=== PATIENT | male | born 1975 | race Hispanic/Latino ===

== ENCOUNTER 2021-11-11 16:09 | Inpatient (IN) | payer SELFPAY ==
[2021-11-11] MEDS ORDERED: MINERAL OIL/PETROLATUM, WHITE OPHTH OINT 3.5 GM OU PRN (17:01)
[2021-11-11] MEDS ORDERED: LIP THERAPY VASELINE TP PRN (17:01)
[2021-11-11] MEDS ORDERED: KETAMINE 500 MG/5 ML VIAL MDV IV ONE (17:01)
[2021-11-11] MEDS ORDERED: ROCURONIUM 50 MG/5 ML INJ IV ONE ×2 (17:01→23:16)
[2021-11-11] MEDS ORDERED: LACTATED RINGERS 1,000 ML IV ONE (17:03)
--- NOTE | 2021-11-11 17:11 | Emergency Department Report ---
ED General Adult HPI - General Chief complaint: Altered Mental Status Stated complaint: UNRESPONSIVE Time Seen by Provider: 11/11/21 16:28 Source: patient, EMS ( EMS documentation not available at time of chart dictation ), RN notes reviewed Mode of arrival: Stretcher Limitations: Altered Mental Status, Physical Limitation - History of Present Illness Initial comments: The patient was evaluated in the emergency department for symptoms described in the history of present illness. He/she was evaluated in the context of the global COVID-19 pandemic, which necessitated consideration that the patient might be at risk for infection with the virus that causes COVID-19. Institutional protocols and algorithms that pertain to the evaluation of patients at risk for COVID-19 are in a state of rapid change based on information released by regulatory bodies including the CDC and federal and state organizations. These policies and algorithms were followed during the patient's care in the emergency department. Please note that these policies, procedures and recommendations changed on a rapid basis. The patient is a 46-year-old gentleman who is obese. He is not known to myself previously. He is brought to the hospital by emergency medical services. History is limited as the patient is altered. At the moment, he is not accompanied by friends or family for collateral information or additional information. His Accu-Chek is reported as within normal limits. His last known well time is not explicitly known. Upon initial evaluation, patient is snoring, and gasping, demonstrating signs of decompensated obstructive sleep apnea, with probable hypercapnic respiratory failure. Saturating at 70% to low 80s. With vigorous stimulation the patient arouses. He denies physical pain. He does not know where he is. He moves 4 extremities. He does not know how he got to the hospital. However, when not stimulated, he falls back to sleep, becomes unresponsive, hypoxic, and is apneic -: unknown - Related Data Allergies Allergy/AdvReac Type Severity Reaction Status Date / Time No Known Allergies Allergy Unverified 11/11/21 17:42 ED Review of Systems ROS: Stated complaint: UNRESPONSIVE Other details as noted in HPI Comment: Unobtainable due to pts medical conditions ED Physical Exam - General General appearance: lethargic, obese - Head Head exam: Present: atraumatic, normocephalic - Eye Eye exam: Present: normal appearance, PERRL, EOMI - ENT ENT exam: Present: normal exam, normal orophraynx, mucous membranes dry, normal external ear exam - Neck Neck exam: Present: normal inspection, full ROM. Absent: tenderness, meningismus - Respiratory Respiratory exam: Present: respiratory distress, wheezes, rhonchi, accessory muscle use - Cardiovascular Cardiovascular Exam: Present: normal rhythm, tachycardia, normal heart sounds. Absent: bradycardia, irregular rhythm, systolic murmur, diastolic murmur, rubs, gallop - GI/Abdominal GI/Abdominal exam: Present: soft, other (Morbidly obese). Absent: distended, tenderness, guarding, rebound, rigid, pulsatile mass - Rectal Rectal exam: Present: deferred - Extremities Exam Extremities exam: Present: normal inspection, full ROM, other (2+ pulses noted in the bilateral upper and lower extremities. There is no palpable cord. negative Homans sign. Muscular compartments are soft. The pelvis is stable.). Absent: pedal edema, calf tenderness - Back Exam Back exam: Present: normal inspection. Absent: tenderness, CVA tenderness (R), CVA tenderness (L), paraspinal tenderness, vertebral tenderness - Neurological Exam Neurological exam: Present: altered, other (When aroused, the patient is awake, responds to name, and moves 4 extremities. There is no facial droop) - Psychiatric Psychiatric exam: Present: flat affect - Skin Skin exam: Present: warm, dry, intact, normal color. Absent: rash ED Course - Reevaluation(s) Reevaluation #1: 11/11/21 17:09 Differential diagnosis, including but not limited to: Hypercapnic respiratory failure, toxic encephalopathy, metabolic encephalopathy, pneumonia, urinary tract infection, thyroid derangement Assessment and plan: 46-year-old morbidly obese gentleman, with physical exam evidence of decompensated obstructive sleep apnea, who is acutely encepha lopathic and altered. He is not a candidate for positive pressure ventilation given alteration in mental status. He requires intubation for definitive airway management. The patient is intubated without incident or complication. Please see procedure note. Laboratory studies, CT scan of the brain, x-ray the chest, urinalysis and EKG pending. Have placed a page to critical care continuous dryout operator helper. Awaiting callback. Patient will likely require admission to the intensive care unit for supportive care once initial diagnostics have resulted. 11/11/21 18:31 Discussed the patient's history, physical, imaging studies and clinical impression with critical care physician on-call, Dr. Kapoor, who will follow in consultation and authorize admission to the intensive care unit, and hospital physician, Dr. Pedrito Manning, who will admit patient to the medical service. Additional history is obtained from patient's . Patient was found unresponsive a few days ago, and was hospitalized at [facility]. There was concern that he may have had a urinary tract infection, and was treated empirically for sepsis. As per his , he does not have a formal diagnosis. Obstructive sleep apnea, and does not currently have a BiPAP or CPAP. She does report that this patient has multiple symptoms of obstructive sleep apnea, including somnolence, fatigue, snoring at night, and breathing agonally . Patient's is updated on the patient's current condition, and presumptive diagnosis of obstructive sleep apnea. She is agreeable to admission and hospitalization Reevaluation #2: 11/11/21 19:24 updated patients with labs and radiology studies - Intubation Time Out Performed: No (Emergency situation) Sedative: Ketamine (200 milligrams) Paralytic: Rocuronium Mg Given: 100 Laryngoscope: fiberoptic video scope Size: 3 Assist Device Used: LMA ET Tube Size: 7.5 Tube Secured Depth (cm): 24 Tube Secured Location: teeth Tube Placement Confirmation: visualized tube passing t, equal breath sounds bilat, no breath sounds over epi, confirmation by capnometr Patient Tolerated Procedure: well Intubation Complications: none Additional Comments: Indication for intubation is acute presumed hypercapnic respiratory failure, acute hypoxic respiratory failure, acute encephalopathy Patient placed on nasal cannula at 15 L/min. Receives [id number] ventilation. Preoxygenated to 99/100%. Induced with 200 mg of ketamine. Paralyzed with 100 mg of rocuronium. A curved S3 video laryngoscope blade is gently inserted into the patient's oropharynx. The trachea and vocal cords are easily identified, and a 7.5 endotracheal tube was inserted under direct visualization. The executive pilot balloon was inflated, there is appropriate end-tidal capnography color change, appropriate breath sounds bilaterally, and tube co ndensation. The patient tolerated this procedure well. There were no obvious complications ED Medical Decision Making - Lab Data Result diagrams: 11/11/21 17:18 11/11/21 17:18 Lab Results 11/11/21 11/11/21 11/11/21 Range/Units 16:15 17:18 17:18 Sodium 140 (137-145) mmol/L Potassium 4.0 (3.6-5.0) mmol/L Chloride 106.3 (98-107) mmol/L Carbon Dioxide 23 (22-30) mmol/L Anion Gap 15 mmol/L BUN 7 L (9-20) mg/dL Creatinine 1.2 (0.8-1.3) mg/dL Estimated GFR > 60 ml/min BUN/Creatinine Ratio 6 % Glucose 109 H (75-100) mg/dL POC Glucose 97 (70-105) mg/dL Lactic Acid 0.80 (0.7-2.0) mmol/L Calcium 8.7 (8.4-10.2) mg/dL Magnesium 1.70 (1.7-2.3) mg/dL Total Bilirubin 0.30 (0.1-1.2) mg/dL AST 15 (5-40) units/L ALT 18 (7-56) units/L Alkaline Phosphatase 91 (35-129) units/L Ammonia (25-60) umol/L Total Creatine Kinase 35 L (55-170) units/L Troponin T < 0.010 (0.00-0.029) ng/mL Total Protein 6.8 (6.3-8.2) g/dL Albumin 4.2 (3.9-5) g/dL Albumin/Globulin Ratio 1.6 % TSH (0.270-4.200) mlU/mL Salicylates (2.8-20.0) mg/dL Acetaminophen (10.0-30.0) ug/mL Plasma/Serum Alcohol (0-0.07) % Blood Type Antibody Screen 11/11/21 11/11/21 11/11/21 Range/Units 17:18 17:18 17:18 Sodium (137-145) mmol/L Potassium (3.6-5.0) mmol/L Chloride (98-107) mmol/L Carbon Dioxide (22-30) mmol/L Anion Gap mmol/L BUN (9-20) mg/dL Creatinine (0.8-1.3) mg/dL Estimated GFR ml/min BUN/Creatinine Ratio % Glucose (75-100) mg/dL POC Glucose (70-105) mg/dL Lactic Acid (0.7-2.0) mmol/L Calcium (8.4-10.2) mg/dL Magnesium (1.7-2.3) mg/dL Total Bilirubin (0.1-1.2) mg/dL AST (5-40) units/L ALT (7-56) units/L Alkaline Phosphatase (35-129) units/L Ammonia 40.0 (25-60) umol/L Total Creatine Kinase (55-170) units/L Troponin T (0.00-0.029) ng/mL Total Protein (6.3-8.2) g/dL Albumin (3.9-5) g/dL Albumin/Globulin Ratio % TSH 2.600 (0.270-4.200) mlU/mL Salicylates < 0.3 L (2.8-20.0) mg/dL Acetaminophen (10.0-30.0) ug/mL Plasma/Serum Alcohol (0-0.07) % Blood Type Antibody Screen 11/11/21 11/11/21 11/11/21 Range/Units 17:18 17:18 17:18 Sodium (137-145) mmol/L Potassium (3.6-5.0) mmol/L Chloride (98-107) mmol/L Carbon Dioxide (22-30) mmol/L Anion Gap mmol/L BUN (9-20) mg/dL Creatinine (0.8-1.3) mg/dL Estimated GFR ml/min BUN/Creatinine Ratio % Glucose (75-100) mg/dL POC Glucose (70-105) mg/dL Lactic Acid (0.7-2.0) mmol/L Calcium (8.4-10.2) mg/dL Magnesium (1.7-2.3) mg/dL Total Bilirubin (0.1-1.2) mg/dL AST (5-40) units/L ALT (7-56) units/L Alkaline Phosphatase (35-129) units/L Ammonia (25-60) umol/L Total Creatine Kinase (55-170) units/L Troponin T (0.00-0.029) ng/mL Total Protein (6.3-8.2) g/dL Albumin (3.9-5) g/dL Albumin/Globulin Ratio % TSH (0.270-4.200) mlU/mL Salicylates (2.8-20.0) mg/dL Acetaminophen 5.0 L (10.0-30.0) ug/mL Plasma/Serum Alcohol < 0.01 (0-0.07) % Blood Type A NEGATIVE Antibody Screen Negative - EKG Data -: EKG Interpreted by Me EKG shows normal: sinus rhythm Rate: tachycardia - EKG Data When compared to previous EKG there are: previous EKG unavailable 11/11/21 19:24 The EKG is interpreted at 19: 10 Sinus rhythm, tachycardia, rate 104 bpm. Normal axis, normal P wave axis, QTC 4 3 6 ms. Motion artifact. Not a STEMI. Ms. procainamide - Radiology Data Radiology results: pending, report reviewed, image reviewed CHEST 1 VIEW 11/11/2021 5:08 PM INDICATION / CLINICAL INFORMATION: ETT placement. COMPARISON: None available. FINDINGS: SUPPORT DEVICES: There is an endotracheal tube with the tip approximately 3.7 cm above the latia. HEART / MEDIASTINUM: The heart size is normal. There is mild prominence of the central pulmonary vessels. LUNGS / PLEURA: Interstitial lung markings are mildly increased in both perihilar regions/central lungs. No pleural effusion. No pneumothorax. ADDITIONAL FINDINGS: No significant additional findings. IMPRESSION: 1. Endotracheal tube in satisfactory position radiographically. 2. Possible mild perihilar edema. Signer Name: Mohinder Rao MD Signed: 11/11/2021 4:[address] BRAIN: 11/11/2021 INDICATION / CLINICAL INFORMATION: Altered Mental Status. COMPARISON: None available. FINDINGS: BRAIN/INTRACRANIAL STRUCTURES: Unenhance d CT images of the brain were obtained. There is no evidence of acute abnormality. Ventricles and sulci are normal in size and shape. There is no evidence of ischemic injury, demyelination, hemorrhage, or mass. There are no abnormal extra-axial fluid collections. EXTRACRANIAL STRUCTURES: Unremarkable. IMPRESSION: Negative unenhanced CT of the brain. All CT scans at this location are performed using dose reduction to ALARA by means of automated exposure control. Signer Name: Vasiliy Arguelles MD Signed: 11/11/2021 5:35 PM Workstation Name: [id number] Critical Care Time: Yes Critical care time in (mins) excluding proc time.: 45 Critical care attestation.: If time is entered above; I have spent that time in minutes in the direct care of this critically ill patient, excluding procedure time. ED Disposition Clinical Impression: Acute respiratory failure with hypoxia, Acute encephalopathy, Obesity Disposition: 09 ADMITTED INPATIENT Is pt being admited?: Yes Does the pt Need Aspirin: No Condition: Critical Referrals: PRIMARY CARE,MD [Primary Care Provider] - 3-5 Days
--- NOTE | 2021-11-11 17:31 | XRay Report ---
CHEST 1 VIEW 11/11/2021 5:08 PM INDICATION / CLINICAL INFORMATION: ETT placement. COMPARISON: None available. FINDINGS: SUPPORT DEVICES: There is an endotracheal tube with the tip approximately 3.7 cm above the latia. HEART / MEDIASTINUM: The heart size is normal. There is mild prominence of the central pulmonary vess els. LUNGS / PLEURA: Interstitial lung markings are mildly increased in both perihilar regions/central anette gs. No pleural effusion. No pneumothorax. ADDITIONAL FINDINGS: No significant additional findings. IMPRESSION: 1. Endotracheal tube in satisfactory position radiographically. 2. Possible mild perihilar edema. Signer Name: Mohinder Rao MD Signed: 11/11/2021 5:26 PM Workstation Name: [id number]
[2021-11-11 18:13] LABS: Alanine Aminotransferase 18 units/L (7-56); Albumin 4.2 g/dL (3.9-5); BUN/Creatinine Ratio 6; Blood Urea Nitrogen 7 mg/dL (9-20); Calcium 8.7 mg/dL (8.4-10.2); Hemolysis Index 6
[2021-11-11 18:37] LABS: INR 0.87 (0.87-1.13)
[2021-11-11 18:38] LABS: Partial Thromboplastin Time 25.6 Sec. (24.2-36.6)
--- NOTE | 2021-11-11 18:39 | Cat Scan Report ---
CT BRAIN: 11/11/2021 INDICATION / CLINICAL INFORMATION: Altered Mental Status. COMPARISON: None available. FINDINGS: BRAIN/INTRACRANIAL STRUCTURES: Unenhanced CT images of the brain were obtained. There is no evidence of acute abnormality. Ventricles and sulci are normal in size and shape. There is no evidence of ischemic injury, demyelination, hemorrhage, or mass. There are no abnormal ex tra-axial fluid collections. EXTRACRANIAL STRUCTURES: Unremarkable. IMPRESSION: Negative unenhanced CT of the brain. All CT scans at this location are performed using dose reduction to ALARA by means of automated expos ure control. Signer Name: Vasiliy Arguelles MD Signed: 11/11/2021 6:35 PM Workstation Name: [id number]
[2021-11-11 18:41] LABS: Hematocrit 49.1 % (35.5-45.6); Hemoglobin 15.9 gm/dl (11.8-15.2); Mean Corpuscular HGB Conc 32 % (32-34); Mean Corpuscular Volume 85 fl (84-94); Platelet Count 345 K/mm3 (140-440); Red Cell Distribution Width 15.8 % (13.2-15.2)
[2021-11-11 18:54] LABS: ABG Base Excess -2.8 mmol/L (-2.0-3.0); ABG HCO3 24.1 mmol/L (20.0-26.0); ABG Methemoglobin 0.6 % (0.0-1.5); ABG Oxygen Saturation 99.5 % (95.0-99.0); ABG PCO2 49.9 mm Hg; ABG PH 7.302 pH Units (7.350-7.450)
[2021-11-11 18:56] LABS: ABG PO2 333.7 mm Hg (80.0-90.0)
[2021-11-11] MEDS ORDERED: ONDANSETRON 4 MG/2 ML INJ IV PRN (21:09)
--- NOTE | 2021-11-11 21:09 | History and Physical Report ---
History of Present Illness Date of examination: 11/11/21 Date of admission: November 11, 2021 Chief complaint: Increasing shortness of breath for 2 days History of present illness: 46-year-old male (morbidly obese brought into the emergency room for an increasing shortness of breath. Patient is not accompanied by any family. No collateral information available. His last well-known time is not known. Patient brought in by EMS. Upon initial evaluation patient was snoring and gasping for air. Patient history of obstructive sleep apnea. Patient was saturating in the low 70s to low 80s. Patient is arousable with vigorous stimulation. Denies any physical pain. Moves all 4 extremities. Patient falls back to sleep when not stimulated. Because of the low saturations and difficulty breathing patient was intubated in the emergency room for possible acute respiratory failure and hypercapnia. No fever or chills. Vaccination status not known. Medications were not available for reconciliation. ED course--patient intubated and maintained on ventilator. Past History Past Medical History: COPD, other (Obesity and obstructive sleep apnea) Past Surgical History: Other (Surgical history not known.) Social history: lives with family, full code Family history: hypertension Medications and Allergies Allergies Allergy/AdvReac Type Severity Reaction Status Date / Time ciprofloxacin Allergy Unknown Verified 11/11/21 19:44 Active Meds: Active Medications Famotidine (Famotidine 20 Mg/2 Ml Inj) 20 mg IV BID SILVIO Hydrophilic Ointment (Lip Therapy Vaseline) 1 applic TP Q2HR PRN PRN Reason: Dry Lips Propofol (Diprivan 10 Mg/Ml) 1,000 mg in 100 mls @ 2.858 mls/hr IV TITR SILVIO; Protocol Last Titration: 11/11/21 20:05 Dose: 40 mcg/kg/min, 22.861 mls/hr Multi-Ingred Cream/Lotion/Oil/Oint (Mineral Oil/Petrolatum, White Ophth Oint 3.5 Gm) 1 applic OU Q4HR PRN PRN Reason: Dry Eye(s) Senna/Docusate Sodium (Sennosides/Docusate Sodium 8.6/50 Mg Tab) 1 tab FEEDTUBE BID SILVIO Review of Systems All systems: negative Constitutional: no weight loss, no weight gain, no fever, no chills Ears, nose, mouth and throat: deferred Cardiovascular: shortness of breath Respiratory: shortness of breath, dyspnea on exertion, congestion, wheezing Gastrointestinal: no abdominal pain, no nausea, no vomiting Genitourinary Male: no dysuria, no hematuria Musculoskeletal: no neck stiffness, no neck pain Neurological: no seizures, no syncope Allergic/Immunologic: no urticaria, no allergic rhinitis Exam - Physical Exam Narrative exam: Patient intubated in the emergency room and on ventilator. - Constitutional Vitals: Temp Pulse Resp BP Pulse Ox 98.4 F 80 22 117/73 100 11/11/21 18:30 11/11/21 20:00 11/11/21 20:00 11/11/21 20:00 11/11/21 20:00 General appearance: Present: severe distress, well-nourished - EENT Eyes: Present: PERRL ENT: hearing intact, clear oral mucosa - Neck Neck: Present: supple, normal ROM - Respiratory Respiratory effort: normal Respiratory: bilateral: CTA - Cardiovascular Heart Sounds: Present: S1 & S2. Absent: rub, click - Extremities Extremities: no ischemia, pulses intact, pulses symmetrical, No edema Peripheral Pulses: within normal limits - Abdominal General gastrointestinal: Present: soft, non-tender, non-distended, normal bowel sounds Male genitourinary: Present: normal - Integumentary Integumentary: Present: clear, warm, dry - Musculoskeletal Musculoskeletal: generalized weakness - Psychiatric Psychiatric: other (Patient intubated.) - Neurologic Neurologic: moves all extremities, other - Allied Health Allied health notes reviewed: nursing, case management HEART Score - HEART Score History: Moderately suspicious Risk factors: 1-2 risk factors Troponin: Troponin T < 0.010 ng/mL (0.00-0.029) 11/11/21 17:18 Troponin: < normal limit - Critical Actions Critical Actions: 0-3 pts:0.9-1.7%risk of adverse cardiac event.Candidate for discharge Results - Labs CBC & Chem 7: 11/12/21 03:52 11/12/21 03:52 Labs: Laboratory Last Values WBC 13.6 K/mm3 (4.5-11.0) H 11/11/21 17:18 RBC 5.80 M/mm3 (3.65-5.03) H 11/11/21 17:18 Hgb 15.9 gm/dl (11.8-15.2) H 11/11/21 17:18 Hct 49.1 % (35.5-45.6) H 11/11/21 17:18 MCV 85 fl (84-94) 11/11/21 17:18 MCH 27 pg (28-32) L 11/11/21 17:18 MCHC 32 % (32-34) 11/11/21 17:18 RDW 15.8 % (13.2-15.2) H 11/11/21 17:18 Plt Count 345 K/mm3 (140-440) 11/11/21 17:18 Lymph % (Auto) [employer] 11/11/21 17:18 Major % (Auto) [employer] 11/11/21 17:18 Eos % (Auto) [employer] 11/11/21 17:18 Baso % (Auto) [employer] 11/11/21 17:18 Lymph # (Auto) [employer] 11/11/21 17:18 Major # (Auto) [employer] 11/11/21 17:18 Eos # (Auto) [employer] 11/11/21 17:18 Baso # (Auto) [employer] 11/11/21 17:18 Seg Neutrophils % [employer] 11/11/21 17:18 Seg Neutrophils # [employer] 11/11/21 17:18 PT 12.8 Sec. (12.2-14.9) 11/11/21 17:18 INR 0.87 (0.87-1.13) 11/11/21 17:18 APTT 25.6 Sec. (24.2-36.6) 11/11/21 17:18 ABG pH 7.302 pH Units (7.350-7.450) L 11/11/21 18:42 ABG pCO2 49.9 mm Hg 11/11/21 18:42 ABG pO2 333.7 mm Hg (80.0-90.0) H 11/11/21 18:42 ABG HCO3 24.1 mmol/L (20.0-26.0) 11/11/21 18:42 ABG O2 Saturation 99.5 % (95.0-99.0) H 11/11/21 18:42 ABG O2 Content 22.1 (0.0-44) 11/11/21 18:42 ABG Base Excess -2.8 mmol/L (-2.0-3.0) L 11/11/21 18:42 ABG Hemoglobin 15.7 gm/dl (14.0-18.0) 11/11/21 18:42 ABG Carboxyhemoglobin 2.5 % (0.0-5.0) 11/11/21 18:42 ABG Methemoglobin 0.6 % (0.0-1.5) 11/11/21 18:42 Oxyhemoglobin 96.4 % (95.0-99.0) 11/11/21 18:42 FiO2 100 % 11/11/21 18:42 Sodium 140 mmol/L (137-145) 11/11/21 17:18 Potassium 4.0 mmol/L (3.6-5.0) 11/11/21 17:18 Chloride 106.3 mmol/L (98-107) 11/11/21 17:18 Carbon Dioxide 23 mmol/L (22-30) 11/11/21 17:18 Anion Gap 15 mmol/L 11/11/21 17:18 BUN 7 mg/dL (9-20) L 11/11/21 17:18 Creatinine 1.2 mg/dL (0.8-1.3) 11/11/21 17:18 Estimated GFR > 60 ml/min 11/11/21 17:18 BUN/Creatinine Ratio 6 % 11/11/21 17:18 Glucose 109 mg/dL (75-100) H 11/11/21 17:18 POC Glucose 97 mg/dL (70-105) 11/11/21 16:15 Lactic Acid 0.80 mmol/L (0.7-2.0) 11/11/21 17:18 Calcium 8.7 mg/dL (8.4-10.2) 11/11/21 17:18 Magnesium 1.70 mg/dL (1.7-2.3) 11/11/21 17:18 Total Bilirubin 0.30 mg/dL (0.1-1.2) 11/11/21 17:18 AST 15 units/L (5-40) 11/11/21 17:18 ALT 18 units/L (7-56) 11/11/21 17:18 Alkaline Phosphatase 91 units/L (35-129) 11/11/21 17:18 Ammonia 40.0 umol/L (25-60) 11/11/21 17:18 Total Creatine Kinase 35 units/L (55-170) L 11/11/21 17:18 Troponin T < 0.010 ng/mL (0.00-0.029) 11/11/21 17:18 Total Protein 6.8 g/dL (6.3-8.2) 11/11/21 17:18 Albumin 4.2 g/dL (3.9-5) 11/11/21 17:18 Albumin/Globulin Ratio 1.6 % 11/11/21 17:18 TSH 2.600 mlU/mL (0.270-4.200) 11/11/21 17:18 Salicylates < 0.3 mg/dL (2.8-20.0) L 11/11/21 17:18 Acetaminophen 5.0 ug/mL (10.0-30.0) L 11/11/21 17:18 Plasma/Serum Alcohol < 0.01 % (0-0.07) 11/11/21 17:18 Blood Type A NEGATIVE 11/11/21 17:18 Antibody Screen Negative 11/11/21 17:18 Short CBC 11/11/21 11/12/21 Range/Units 17:18 03:52 WBC 13.6 H 16.6 H (4.5-11.0) K/mm3 Hgb 15.9 H 14.7 (11.8-15.2) gm/dl Hct 49.1 H 46.0 H (35.5-45.6) % Plt Count 345 273 (140-440) K/mm3 BMP 11/11/21 11/12/21 17:18 03:52 Sodium 140 139 Potassium 4.0 4.4 Chloride 106.3 105.6 Carbon Dioxide 23 20 L BUN 7 L 12 Creatinine 1.2 1.2 Glucose 109 H 143 H Calcium 8.7 8.3 L Cardiac Enzymes 11/11/21 Range/Units 17:18 Total Creatine Kinase 35 L (55-170) units/L Troponin T < 0.010 (0.00-0.029) ng/mL Liver Function 11/11/21 11/12/21 Range/Units 17:18 03:52 Total Bilirubin 0.30 0.20 (0.1-1.2) mg/dL AST 15 14 (5-40) units/L ALT 18 17 (7-56) units/L Alkaline Phosphatase 91 82 (35-129) units/L Albumin 4.2 3.6 L (3.9-5) g/dL Microbiology: Microbiology 11/11/21 17:18 Peripheral/Venous Blood Culture - Preliminary Culture in Progress 11/11/21 17:18 Peripheral/Venous Blood Culture - Preliminary Culture in Progress - Imaging and Cardiology EKG: report reviewed (Sinus tachycardia) Imaging and Cardiology: Chest x-ray Mild perihilar edema Chest x-ray #2 endotracheal tube in satisfactory position Head CT Negative unenhanced CT of the brain Assessment and Plan Assessment and plan: Critical care statement The high probability OF a clinically significant sudden or life-threatening deterioration of the cardiorespiratory system and endocrine system required my full and direct attention, intervention and postoperative management. The [facility] critical care time was 40 minutes. The time is in addition to time spent performing reported procedures but includes the followin: Data review and interpretation 2: Patient assessment and monitoring of vital signs 3: Documentation 4:: Medication orders and management Advance Directives: Yes (Full code) - Patient Problems (1) Acute respiratory failure with hypoxia and hypercapnia Current Visit: Yes Status: Acute Plan to address problem: Patient was lethargic because of hypercarbia Immediate ABG was not available ABG done was after 90 minutes of ventilation Since CO2 is around 49 Decreased responsiveness because of hypercapnia IV antibiotics, IV Solu-Medrol and duo nebs [id number] and as needed Park Manager consult requested (2) Obstructive sleep apnea Current Visit: Yes Status: Chronic Plan to address problem: Patient intubated Needs CPAP machine as outpatient after extubation and stabilization Needs sleep study as outpatient (3) COPD with acute exacerbation Current Visit: Yes Status: Acute Plan to address problem: IV antibiotics, duo nebs [id number] and as needed and IV Solu-Medrol (4) Obesity hypoventilation syndrome Current Visit: Yes Status: Chronic Plan to address problem: May need bariatric surgery appointment as outpatient if patient is not motivated Defer to primary team for counseling at the time of discharge (5) Polycythemia due to fall in plasma volume Current Visit: Yes Status: Acute Plan to address problem: IV fluids for now (6) DVT prophylaxis Current Visit: Yes Status: Acute Plan to address problem: On anticoagulation GI prophylaxis
[2021-11-11] MEDS ORDERED: MORPHINE 2 MG/1 ML INJ IV PRN (21:10)
[2021-11-11] MEDS ORDERED: ACETAMINOPHEN 650 MG RECT SUPP PR PRN (21:10)
[2021-11-11] MEDS ORDERED: IPRATROPIUM/ALBUTEROL SULFATE 3 ML AMPUL.NEB IH PRN (21:12)
[2021-11-11] MEDS ORDERED: AZITHROMYCIN/NS 500 MG/250 ML 500 MG/250 ML BAG IV SCH (22:00)
[2021-11-11] MEDS ORDERED: SENNOSIDES/DOCUSATE SODIUM 8.6/50 MG TAB FEEDTUBE SCH (22:00)
[2021-11-11] MEDS ORDERED: ALBUTEROL 2.5 MG/3 ML NEBU IH PRN (22:00)
[2021-11-11] MEDS: FAMOTIDINE 20 MG/2 ML INJ IV SCH (22:00)
[2021-11-11] MEDS ORDERED: methylPREDNISolone Sod Succinate 125 MG/2 ML INJ IV SCH (22:00)
[2021-11-11] MEDS: cefTRIAXone/NS 2 GM/100 ML 2 GM/100 ML BAG IV SCH (22:08)
[2021-11-11] MEDS: HEPARIN 5,000 UNIT/1 ML VIAL SUB-Q SCH (22:09)
[2021-11-11] MEDS ORDERED: SODIUM CHLORIDE 0.9% 1000 ML 1,000 ML IV SCH (22:15)
[2021-11-11] MEDS ORDERED: KETAMINE 500 MG/5 ML VIAL MDV ONE (23:16)
[2021-11-12] MEDS ORDERED: SODIUM CHLORIDE 0.9% 500 ML 500 ML ONE (00:04)
[2021-11-12 04:24] LABS: Hemoglobin 14.7 gm/dl (11.8-15.2); Mean Corpuscular HGB Conc 32 % (32-34); Mean Corpuscular Volume 85 fl (84-94); Platelet Count 273 K/mm3 (140-440); Red Blood Count 5.43 M/mm3 (3.65-5.03); Red Cell Distribution Width 15.9 % (13.2-15.2)
[2021-11-12 04:43] LABS: Alanine Aminotransferase 17 units/L (7-56); Albumin 3.6 g/dL (3.9-5); BUN/Creatinine Ratio 10; Blood Urea Nitrogen 12 mg/dL (9-20); Calcium 8.3 mg/dL (8.4-10.2); Hemolysis Index 24
[2021-11-12 05:09] LABS: ABG Base Excess -3.5 mmol/L (-2.0-3.0); ABG Methemoglobin 0.5 % (0.0-1.5); ABG Oxygen Saturation 97.9 % (95.0-99.0); ABG PCO2 36.5 mm Hg; ABG PH 7.379 pH Units (7.350-7.450); ABG PO2 108.3 mm Hg (80.0-90.0)
[2021-11-12 06:25] LABS: Basophils % (Manual) 0 % (0.0-1.8); Eosinophils % (Manual) 0 % (0.0-4.3); Total Cells Counted 100
[2021-11-12 06:26] LABS: Anisocytosis 1+; Platelet Estimate Consistent w Auto
--- NOTE | 2021-11-12 07:46 | Progress Note ---
Assessment and Plan Assessment and plan: History of present illness: 46-year-old male (morbidly obese brought into the emergency room for an increasing shortness of breath. Patient is not accompanied by any family. No collateral information available. His last well-known time is not known. Patient brought in by EMS. Upon initial evaluation patient was snoring and gasping for air. Patient history of obstructive sleep apnea. Patient was saturating in the low 70s to low 80s. Patient is arousable with vigorous stimulation. Denies any physical pain. Moves all 4 extremities. Patient falls back to sleep when not stimulated. Because of the low saturations and difficulty breathing patient was intubated in the emergency room for possible acute respiratory failure and hypercapnia. No fever or chills. Vaccination status not known. Medications were not available for reconciliation. ED course--patient intubated and maintained on ventilator. Hospital Course: 11/12: Wean sedation. Plan for extubation today. High suspicion for XUAN given large body habitus/neck circumference. Ordered BIPAP qhs & prn. Assessment and Plan: # Acute respiratory failure with hypoxia and hypercapnia - Patient was lethargic because of hypercarbia - AB.4/30/111/20 - Decreased responsiveness because of hypercapnia - IV Solu-Medrol and duo nebs [id number] and as needed - CXR: Some worsening of RLL infiltrate - continue empric abx coverage, procalcitonin ordered - Event Security Officer consult requested # RLL pneumonia - leukocytosis 16.6K - CXR shows worsening airspace disease in RLL - Azithromycin/ceftriaxone - albuterol prn # Obstructive sleep apnea Patient intubated, plan for extubation BIPAP qhs and prn ordered Needs CPAP machine as outpatient after extubation and stabilization Needs sleep study as outpatient # COPD with acute exacerbation IV antibiotics, duo nebs [id number] and as needed and IV Solu-Medrol # Obesity hypoventilation syndrome May need bariatric surgery appointment as outpatient if patient is not motivated Defer to primary team for counseling at the time of discharge # Polycythemia due to fall in plasma volume IV fluids for now # DVT prophylaxis On anticoagulation GI prophylaxis # Advance care planning Disease education conducted, care plan discussed, diagnoses discussed, prognosis discussed, patient is full code, patient acknowledges understanding and agree with care plan, +30 minutes. The high probability of a clinically significant, sudden or life threatening deterioration of the [pulmonary] system(s) required my full and direct attention, intervention and personal management. The aggregate critical care time was [60] minutes. This time is in addition to time spent performing reported procedures but includes the following: [x] Data Review and interpretation [x] Patient assessment and monitoring of vital signs [x] Documentation [x] Medication orders and management History Interval history: Intubated, sedation being weaned. Patient following simple commands off of sedation.Asking for ETT to be removed. Hospitalist Physical - Physical exam Narrative exam: Physical Exam: VITAL SIGNS: Reviewed. GENERAL: The patient appears normally developed, Vital signs as documented. i ntubated and sedated. Elevated bmi HEAD: No signs of head trauma. EYES: Pupils are equal. Extraocular motions intact. EARS: Hearing grossly intact. MOUTH: Oropharynx is normal. NECK: No adenopathy, no JVD. CHEST: Chest with clear breath sounds bilaterally. No wheezes, rales, or rhonchi. CARDIAC: Regular rate and rhythm. S1 and S2, without murmurs, gallops, or rubs. VASCULAR: No Edema. Peripheral pulses normal and equal in all extremities. ABDOMEN: Soft, non tender and non distended. No rebound or guarding, and no masses palpated. Bowel Sounds normal. MUSCULOSKELETAL: Good range of motion of all major joints. Extremities without clubbing, cyanosis or edema. NEUROLOGIC EXAM: Alert and oriented at least x 2. following commands. no focal sensory or strength deficits. PSYCHIATRIC: Mood normal. SKIN: detail exam as documented in skin assessment - Constitutional Vitals: Temp Pulse Resp BP Pulse Ox 98.4 F 56 L 20 117/68 98 11/11/21 18:30 11/12/21 06:00 11/12/21 06:00 11/12/21 06:00 11/12/21 06:00 General appearance: Present: severe distress, well-nourished HEART Score - HEART Score Risk factors: 1-2 risk factors Troponin: Troponin T < 0.010 ng/mL (0.00-0.029) 11/11/21 17:18 Troponin: < normal limit - Critical Actions Critical Actions: 0-3 pts:0.9-1.7%risk of adverse cardiac event.Candidate for discharge Results - Labs CBC & Chem 7: 11/12/21 03:52 11/12/21 03:52 Labs: Laboratory Last Values WBC 16.6 K/mm3 (4.5-11.0) H 11/12/21 03:52 RBC 5.43 M/mm3 (3.65-5.03) H 11/12/21 03:52 Hgb 14.7 gm/dl (11.8-15.2) 11/12/21 03:52 Hct 46.0 % (35.5-45.6) H 11/12/21 03:52 MCV 85 fl (84-94) 11/12/21 03:52 MCH 27 pg (28-32) L 11/12/21 03:52 MCHC 32 % (32-34) 11/12/21 03:52 RDW 15.9 % (13.2-15.2) H 11/12/21 03:52 Plt Count 273 K/mm3 (140-440) 11/12/21 03:52 Lymph % (Auto) Coupling Machine Operator 11/11/21 17:18 [place] % (Auto) Coupling Machine Operator 11/11/21 17:18 Eos % (Auto) Coupling Machine Operator 11/11/21 17:18 Baso % (Auto) Coupling Machine Operator 11/11/21 17:18 Lymph # (Auto) Coupling Machine Operator 11/11/21 17:18 [place] # (Auto) Coupling Machine Operator 11/11/21 17:18 Eos # (Auto) Coupling Machine Operator 11/11/21 17:18 Baso # (Auto) Coupling Machine Operator 11/11/21 17:18 Add Manual Diff Complete 11/12/21 03:52 Total Counted 100 11/12/21 03:52 Seg Neutrophils % Coupling Machine Operator 11/12/21 03:52 Seg Neuts % (Manual) 94.0 % (40.0-70.0) H 11/12/21 03:52 Band Neutrophils % 0 % 11/12/21 03:52 Lymphocytes % (Manual) 4.0 % (13.4-35.0) L 11/12/21 03:52 Reactive Lymphs % (Man) 0 % 11/12/21 03:52 Monocytes % (Manual) 2.0 % (0.0-7.3) 11/12/21 03:52 Eosinophils % (Manual) 0 % (0.0-4.3) 11/12/21 03:52 Basophils % (Manual) 0 % (0.0-1.8) 11/12/21 03:52 Metamyelocytes % 0 % 11/12/21 03:52 Myelocytes % 0 % 11/12/21 03:52 Promyelocytes % 0 % 11/12/21 03:52 Blast Cells % 0 % 11/12/21 03:52 Nucleated RBC % Not Reportable 11/12/21 03:52 Seg Neutrophils # Coupling Machine Operator 11/11/21 17:18 Seg Neutrophils # Man 15.6 K/mm3 (1.8-7.7) H 11/12/21 03:52 Band Neutrophils # 0.0 K/mm3 11/12/21 03:52 Lymphocytes # (Manual) 0.7 K/mm3 (1.2-5.4) L 11/12/21 03:52 Abs React Lymphs (Man) 0.0 K/mm3 11/12/21 03:52 Monocytes # (Manual) 0.3 K/mm3 (0.0-0.8) 11/12/21 03:52 Eosinophils # (Manual) 0.0 K/mm3 (0.0-0.4) 11/12/21 03:52 Basophils # (Manual) 0.0 K/mm3 (0.0-0.1) 11/12/21 03:52 Metamyelocytes # 0.0 K/mm3 11/12/21 03:52 Myelocytes # 0.0 K/mm3 11/12/21 03:52 Promyelocytes # 0.0 K/mm3 11/12/21 03:52 Blast Cells # 0.0 K/mm3 11/12/21 03:52 WBC Morphology Not Reportable 11/12/21 03:52 Hypersegmented Neuts Not Reportable 11/12/21 03:52 Hyposegmented Neuts Not Reportable 11/12/21 03:52 Hypogranular Neuts Not Reportable 11/12/21 03:52 Smudge Cells Not Reportable 11/12/21 03:52 Toxic Granulation Not Reportable 11/12/21 03:52 Toxic Vacuolation Not Reportable 11/12/21 03:52 Dohle Bodies Not Reportable 11/12/21 03:52 Pelger-Huet Anomaly Not Reportable 11/12/21 03:52 Lindy Rods Not Reportable 11/12/21 03:52 Platelet Estimate Consistent w auto 11/12/21 03:52 Clumped Platelets Not Reportable 11/12/21 03:52 Plt Clumps, EDTA Not Reportable 11/12/21 03:52 Large Platelets Not Reportable 11/12/21 03:52 Giant Platelets Not Reportable 11/12/21 03:52 Platelet Satelliting Not Reportable 11/12/21 03:52 Plt Morphology Comment Not Reportable 11/12/21 03:52 RBC Morphology Not Reportable 11/12/21 03:52 Dimorphic RBCs Not Reportable 11/12/21 03:52 Polychromasia Not Reportable 11/12/21 03:52 Hypochromasia Not Reportable 11/12/21 03:52 Poikilocytosis Not Reportable 11/12/21 03:52 Anisocytosis 1+ 11/12/21 03:52 Microcytosis Not Reportable 11/12/21 03:52 Macrocytosis Not Reportable 11/12/21 03:52 Spherocytes Not Reportable 11/12/21 03:52 Pappenheimer Bodies Not Reportable 11/12/21 03:52 Sickle Cells Not Reportable 11/12/21 03:52 Target Cells Not Reportable 11/12/21 03:52 Tear Drop Cells Not Reportable 11/12/21 03:52 Ovalocytes Not Reportable 11/12/21 03:52 Helmet Cells Not Reportable 11/12/21 03:52 Bhandari-Seeley Bodies Not Reportable 11/12/21 03:52 [place] Rings Not Reportable 11/12/21 03:52 [place] Cells Not Reportable 11/12/21 03:52 Bite Cells Not Reportable 11/12/21 03:52 Crenated Cell Not Reportable 11/12/21 03:52 Elliptocytes Not Reportable 11/12/21 03:52 Acanthocytes (Spur) Not Reportable 11/12/21 03:52 Rouleaux Not Reportable 11/12/21 03:52 Hemoglobin C Crystals Not Reportable 11/12/21 03:52 Schistocytes Not Reportable 11/12/21 03:52 Malaria parasites Not Reportable 11/12/21 03:52 Stoney Bodies Not Reportable 11/12/21 03:52 Hem Pathologist Commnt No 11/12/21 03:52 PT 12.8 Sec. (12.2-14.9) 11/11/21 17:18 INR 0.87 (0.87-1.13) 11/11/21 17:18 APTT 25.6 Sec. (24.2-36.6) 11/11/21 17:18 ABG pH 7.379 pH Units (7.350-7.450) 11/12/21 04:41 ABG pCO2 36.5 mm Hg 11/12/21 04:41 ABG pO2 108.3 mm Hg (80.0-90.0) H 11/12/21 04:41 ABG HCO3 21.0 mmol/L (20.0-26.0) 11/12/21 04:41 ABG O2 Saturation 97.9 % (95.0-99.0) 11/12/21 04:41 ABG O2 Content 20.2 (0.0-44) 11/12/21 04:41 ABG Base Excess -3.5 mmol/L (-2.0-3.0) L 11/12/21 04:41 ABG Hemoglobin 14.8 gm/dl (14.0-18.0) 11/12/21 04:41 ABG Carboxyhemoglobin 1.1 % (0.0-5.0) 11/12/21 04:41 ABG Methemoglobin 0.5 % (0.0-1.5) 11/12/21 04:41 Oxyhemoglobin 96.3 % (95.0-99.0) 11/12/21 04:41 FiO2 40 % 11/12/21 04:41 Sodium 139 mmol/L (137-145) 11/12/21 03:52 Potassium 4.4 mmol/L (3.6-5.0) 11/12/21 03:52 Chloride 105.6 mmol/L (98-107) 11/12/21 03:52 Carbon Dioxide 20 mmol/L (22-30) L 11/12/21 03:52 Anion Gap 18 mmol/L 11/12/21 03:52 BUN 12 mg/dL (9-20) 11/12/21 03:52 Creatinine 1.2 mg/dL (0.8-1.3) 11/12/21 03:52 Estimated GFR > 60 ml/min 11/12/21 03:52 BUN/Creatinine Ratio 10 % 11/12/21 03:52 Glucose 143 mg/dL (75-100) H 11/12/21 03:52 POC Glucose 97 mg/dL (70-105) 11/11/21 16:15 Lactic Acid 0.80 mmol/L (0.7-2.0) 11/11/21 17:18 Calcium 8.3 mg/dL (8.4-10.2) L 11/12/21 03:52 Magnesium 1.70 mg/dL (1.7-2.3) 11/11/21 17:18 Total Bilirubin 0.20 mg/dL (0.1-1.2) 11/12/21 03:52 AST 14 units/L (5-40) 11/12/21 03:52 ALT 17 units/L (7-56) 11/12/21 03:52 Alkaline Phosphatase 82 units/L (35-129) 11/12/21 03:52 Ammonia 40.0 umol/L (25-60) 11/11/21 17:18 Total Creatine Kinase 35 units/L (55-170) L 11/11/21 17:18 Troponin T < 0.010 ng/mL (0.00-0.029) 11/11/21 17:18 Total Protein 6.5 g/dL (6.3-8.2) 11/12/21 03:52 Albumin 3.6 g/dL (3.9-5) L 11/12/21 03:52 Albumin/Globulin Ratio 1.2 % 11/12/21 03:52 TSH 2.600 mlU/mL (0.270-4.200) 11/11/21 17:18 Salicylates < 0.3 mg/dL (2.8-20.0) L 11/11/21 17:18 Acetaminophen 5.0 ug/mL (10.0-30.0) L 11/11/21 17:18 Plasma/Serum Alcohol < 0.01 % (0-0.07) 11/11/21 17:18 Blood Type A NEGATIVE 11/11/21 17:18 Antibody Screen Negative 11/11/21 17:18 Microbiology: Microbiology 11/11/21 17:18 Peripheral/Venous Blood Culture - Preliminary Culture in Progress 11/11/21 17:18 Peripheral/Venous Blood Culture - Preliminary Culture in Progress Active Medications - Current Medications Current Medications: Generic Name Dose Route Start Last Admin Trade Name Freq PRN Reason Stop Dose Admin Acetaminophen 650 mg 11/11/21 21:10 Acetaminophen 650 Mg Rect Supp OH Q4H PRN Pain MILD(1-3)/Fever >100.5/NICE Albuterol 2.5 mg 11/11/21 22:00 Albuterol 2.5 Mg/3 Ml Nebu IH Q4HRT PRN Shortness Of Breath Albuterol/Ipratropium 1 ampul 11/12/21 08:00 Ipratropium/Albuterol Sulfate 3 Ml Ampul.Neb IH QIDRT SILVIO Famotidine 20 mg 11/11/21 22:00 11/11/21 22:00 Famotidine 20 Mg/2 Ml Inj IV 20 mg BID SILVIO Administration Heparin Sodium (Porcine) 5,000 unit 11/11/21 22:00 11/11/21 22:09 Heparin 5,000 Unit/1 Ml Vial SUB-Q 5,000 unit Q12HR SILVIO Administration Hydrophilic Ointment 1 applic 11/11/21 17:01 Lip Therapy Vaseline TP Q2HR PRN Dry Lips Propofol 1,000 mg in 100 mls @ 2.858 mls/hr 11/11/21 18:00 11/11/21 21:57 Diprivan 10 Mg/Ml IV 50 mcg/kg/min TITR SILVIO 28.576 mls/hr Titration Protocol 5 MCG/KG/MIN Sodium Chloride 1,000 mls @ 75 mls/hr 11/11/21 22:15 Nacl 0.9% 1000 Ml IV 11/12/21 22:14 DIRECT SILVIO Azithromycin 500 mg in 250 mls @ 250 mls/hr 11/11/21 22:00 Zithromax/Ns IV Q24H SILVIO Ceftriaxone Sodium 2 gm in 100 mls @ 200 mls/hr 11/11/21 22:00 11/11/21 22:08 Rocephin/Ns 2 Gm/100 Ml IV 200 mls/hr Q24HR SILVIO Administration Protocol Methylprednisolone Sodium Succinate 80 mg 11/11/21 22:00 11/11/21 22:09 Methylprednisolone Sod Succinate 125 Mg/2 Ml Inj IV 80 mg Q8HR SILVIO Administration Morphine Sulfate 2 mg 11/11/21 21:10 Morphine 2 Mg/1 Ml Inj IV Q4H PRN Pain, Moderate (4-6) Multi-Ingred Cream/Lotion/Oil/Oint 1 applic 11/11/21 17:01 Mineral Oil/Petrolatum, White Ophth Oint 3.5 Gm OU Q4HR PRN Dry Eye(s) Ondansetron HCl 4 mg 11/11/21 21:09 Ondansetron 4 Mg/2 Ml Inj IV Q8H PRN Nausea And Vomiting Senna/Docusate Sodium 1 tab 11/11/21 22:00 Sennosides/Docusate Sodium 8.6/50 Mg Tab FEEDTUBE BID SILVIO Sodium Chloride 10 ml 11/11/21 22:00 Sodium Chloride 0.9% 10 Ml Flush Syringe IV BID SILVIO Sodium Chloride 10 ml 11/11/21 21:09 Sodium Chloride 0.9% 10 Ml Flush Syringe IV PRN PRN LINE FLUSH
--- NOTE | 2021-11-12 07:58 | XRay Report ---
CHEST 1 VIEW INDICATION / CLINICAL INFORMATION: follow up respiratory failure. COMPARISON: Chest x-ray 11/11/2021 FINDINGS: SUPPORT DEVICES: Endotracheal tube is stable. HEART / MEDIASTINUM: No significant interval change. LUNGS / PLEURA: Minimal worsening of right infrahilar opacities. Lungs otherwise stable. No pneumotho rax. ADDITIONAL FINDINGS: No significant additional findings. IMPRESSION: 1. Minimal worsening atelectatic change within the right lower lung. Otherwise little change in the c hest. Signer Name: Balaji Allan II, MD Signed: 11/12/2021 7:54 AM Workstation Name: [id number]
[2021-11-12] MEDS: cefTRIAXone/NS 2 GM/100 ML 2 GM/100 ML BAG IV SCH (10:44)
[2021-11-12] MEDS: HEPARIN 5,000 UNIT/1 ML VIAL SUB-Q SCH (10:45)
[2021-11-12] MEDS: IPRATROPIUM/ALBUTEROL SULFATE 3 ML AMPUL.NEB IH SCH ×3 (10:45→17:24)
[2021-11-12] MEDS: FAMOTIDINE 20 MG/2 ML INJ IV SCH (10:46)
--- NOTE | 2021-11-12 11:05 | Electrocardiograph Report ---
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
--- NOTE | 2021-11-12 12:30 | Consultation ---
History of Present Illness Consult date: 11/12/21 Past History Past Medical History: COPD, other (Obesity and obstructive sleep apnea) Past Surgical History: Other (Surgical history not known.) Social history: lives with family, full code Family history: hypertension Medications and Allergies Allergies Allergy/AdvReac Type Severity Reaction Status Date / Time ciprofloxacin Allergy Unknown Verified 11/11/21 19:44 Active Meds: Active Medications Acetaminophen (Acetaminophen 650 Mg Rect Supp) 650 mg OH Q4H PRN PRN Reason: Pain MILD(1-3)/Fever >100.5/NICE Albuterol (Albuterol 2.5 Mg/3 Ml Nebu) 2.5 mg IH Q4HRT PRN PRN Reason: Shortness Of Breath Albuterol/Ipratropium (Ipratropium/Albuterol Sulfate 3 Ml Ampul.Neb) 1 ampul IH QIDRT [facility] Last Admin: 11/12/21 12:25 Dose: 1 ampul Famotidine (Famotidine 20 Mg/2 Ml Inj) 20 mg IV BID [facility] Last Admin: 11/12/21 10:46 Dose: 20 mg Heparin Sodium (Porcine) (Heparin 5,000 Unit/1 Ml Vial) 5,000 unit SUB-Q Q12HR [facility] Last Admin: 11/12/21 10:45 Dose: 5,000 unit Hydrophilic Ointment (Lip Therapy Vaseline) 1 applic TP Q2HR PRN PRN Reason: Dry Lips Sodium Chloride (Nacl 0.9% 1000 Ml) 1,000 mls @ 75 mls/hr IV DIRECT SILVIO Stop: 11/12/21 22:14 Azithromycin (Zithromax/Ns) 500 mg in 250 mls @ 250 mls/hr IV Q24H [facility] Stop: 11/15/21 22:59 Ceftriaxone Sodium (Rocephin/Ns 2 Gm/100 Ml) 2 gm in 100 mls @ 200 mls/hr IV Q24HR [facility]; Protocol Stop: 11/15/21 10:29 Last Admin: 11/12/21 10:44 Dose: 200 mls/hr Morphine Sulfate (Morphine 2 Mg/1 Ml Inj) 2 mg IV Q4H PRN PRN Reason: Pain, Moderate (4-6) Multi-Ingred Cream/Lotion/Oil/Oint (Mineral Oil/Petrolatum, White Ophth Oint 3.5 Gm) 1 applic OU Q4HR PRN PRN Reason: Dry Eye(s) Ondansetron HCl (Ondansetron 4 Mg/2 Ml Inj) 4 mg IV Q8H PRN PRN Reason: Nausea And Vomiting Senna/Docusate Sodium (Sennosides/Docusate Sodium 8.6/50 Mg Tab) 1 tab FEEDTUBE BID [facility] Last Admin: 11/12/21 10:44 Dose: Not Given Sodium Chloride (Sodium Chloride 0.9% 10 Ml Flush Syringe) 10 ml IV BID [facility] Last Admin: 11/12/21 10:44 Dose: 10 ml Sodium Chloride (Sodium Chloride 0.9% 10 Ml Flush Syringe) 10 ml IV PRN PRN PRN Reason: LINE FLUSH Physical Examination Vital signs: Vital Signs Pulse BP Pulse Ox 112 H 123/76 100 11/11/21 17:01 11/11/21 17:01 11/11/21 17:01 Results - Laboratory Findings CBC and BMP: 11/12/21 03:52 11/12/21 03:52 ABG ABG pH 7.379 pH Units (7.350-7.450) 11/12/21 04:41 ABG pCO2 36.5 mm Hg 11/12/21 04:41 ABG pO2 108.3 mm Hg (80.0-90.0) H 11/12/21 04:41 ABG O2 Saturation 97.9 % (95.0-99.0) 11/12/21 04:41 PT/INR, D-dimer PT 12.8 Sec. (12.2-14.9) 11/11/21 17:18 INR 0.87 (0.87-1.13) 11/11/21 17:18 Abnormal lab findings: Abnormal Labs 11/11/21 11/11/21 11/11/21 17:18 17:18 17:18 WBC 13.6 H RBC 5.80 H Hgb 15.9 H Hct 49.1 H MCH 27 L RDW 15.8 H Seg Neuts % (Manual) Lymphocytes % (Manual) Seg Neutrophils # Man Lymphocytes # (Manual) ABG pH ABG pO2 ABG O2 Saturation ABG Base Excess Carbon Dioxide BUN 7 L Glucose 109 H Calcium Total Creatine Kinase 35 L Albumin Salicylates < 0.3 L Acetaminophen 11/11/21 11/11/21 11/12/21 17:18 18:42 03:52 WBC 16.6 H RBC 5.43 H Hgb Hct 46.0 H MCH 27 L RDW 15.9 H Seg Neuts % (Manual) 94.0 H Lymphocytes % (Manual) 4.0 L Seg Neutrophils # Man 15.6 H Lymphocytes # (Manual) 0.7 L ABG pH 7.302 L ABG pO2 333.7 H ABG O2 Saturation 99.5 H ABG Base Excess -2.8 L Carbon Dioxide BUN Glucose Calcium Total Creatine Kinase Albumin Salicylates Acetaminophen 5.0 L 11/12/21 11/12/21 03:52 04:41 WBC RBC Hgb Hct MCH RDW Seg Neuts % (Manual) Lymphocytes % (Manual) Seg Neutrophils # Man Lymphocytes # (Manual) ABG pH ABG pO2 108.3 H ABG O2 Saturation ABG Base Excess -3.5 L Carbon Dioxide 20 L BUN Glucose 143 H Calcium 8.3 L Total Creatine Kinase Albumin 3.6 L Salicylates Acetaminophen Assessment and Plan 46 y/o, morbidly obese white male, found unresponsive and then intubated in the ED, now extubated. 1. Agree patient most likely has untreated XUAN. With priory history of syncope, needs echo to assess for right heart disease and pulmonary htn 2. Bipap QHS and PRN 3. Stopped steroids 4. Patient later left AMA from the ED.
[2021-11-12 14:56] LABS: Amphetamine Screen,Urine Negative; Cocaine Screen,Urine Negative; Methadone Screen,Urine Negative; Opiate Screen,Urine Negative
[2021-11-12 15:01] LABS: Bilirubin,Urine NEG (Negative); Blood,Urine NEG (Negative); Color,Urine Yellow (Yellow); Mucus,Urine 3+ /HPF; Urobilinogen,Urine < 2.0 mg/dL (<2.0)
[2021-11-12 15:14] VITALS: BP 161/94
[2021-11-12 15:18] LABS: Benzodiazepines Screen,Urine Positive; Cannabinoid Screen,Urine Positive
--- NOTE | 2021-11-13 09:17 | Progress Note ---
Assessment and Plan Hospital Course: 11/12: Wean sedation. Plan for extubation today. High suspicion for XUAN given large body habitus/neck circumference. Ordered BIPAP qhs & prn. Assessment and Plan: # Acute respiratory failure with hypoxia and hypercapnia - Patient was lethargic because of hypercarbia - AB.4//111/20 - Decreased responsiveness because of hypercapnia - IV Solu-Medrol and duo nebs [id number] and as needed - CXR: Some worsening of RLL infiltrate - continue empric abx coverage, procalcitonin ordered - Switchboard And Control Room Operator consult requested # RLL pneumonia - leukocytosis 16.6K - CXR shows worsening airspace disease in RLL - Azithromycin/ceftriaxone - albuterol prn # Obstructive sleep apnea Patient intubated, plan for extubation BIPAP qhs and prn ordered Needs CPAP machine as outpatient after extubation and stabilization Needs sleep study as outpatient # COPD with acute exacerbation IV antibiotics, duo nebs [id number] and as needed and IV Solu-Medrol # Obesity hypoventilation syndrome May need bariatric surgery appointment as outpatient if patient is not motivated Defer to primary team for counseling at the time of discharge # Polycythemia due to fall in plasma volume IV fluids for now # DVT prophylaxis On anticoagulation GI prophylaxis # Advance care planning Disease education conducted, care plan discussed, diagnoses discussed, prognosis discussed, patient is full code, patient acknowledges understanding and agree with care plan, +30 minutes. Subjective Date of service: 11/13/21 Principal diagnosis: Acute hypoxic respiratory failure Interval history: 46-year-old male with a history of obstructive sleep apnea presented initially with acute shortness of breath. Patient found to be hypoxemic in the ED required intubation. pt signed out AMA from ED in the earlier am Objective - Labs CBC & Chem 7: 11/12/21 03:52 11/12/21 03:52 Labs: Abnormal lab results 11/12/21 Range/Units 13:41 Urine WBC (Auto) 7.0 H (0.0-6.0) /HPF HEART Score - HEART Score Risk factors: 1-2 risk factors Troponin: Troponin T < 0.010 ng/mL (0.00-0.029) 11/11/21 17:18 Troponin: < normal limit - Critical Actions Critical Actions: 0-3 pts:0.9-1.7%risk of adverse cardiac event.Candidate for discharge
--- NOTE | 2021-11-13 12:01 | Discharge Summary ---
Providers - Providers Date of Admission: 11/11/21 21:09 Date of discharge: 11/13/21 Attending physician: ABUNDIO GRIJALVA 11/11/21 17:01 Consult to Dietitian/Nutrition [CONS] Routine Physician Instructions: Reason For Exam: Reason for Consult: Evaluate nutritional intake Consult to Physician [CONS] Stat Comment: Consulting Provider: BLADIMIR MARTIN Physician Instructions: Reason For Exam: acute resp failure 11/12/21 14:02 Consult to Case Management [CONS] Routine Services Needed at Discharge: DME Equipment Notified:: case folder Comment:: setup for cpap machine Primary care physician: SPORTS ANALYST Hospitalization Reason for admission: Acute respiratory failure Condition: Critical Hospital course: Patient left AMA from the ED. Did not receive an evaluation from [place]. Left before 7 AM. Disposition: LEFT AGAINST MEDICAL ADVICE Final Discharge Diagnosis (Prints w/discharge instructions): Acute respiratory failure Core Measure Documentation - Palliative Care Palliative Care/ Comfort Measures: Not Applicable - Core Measures Any of the following diagnoses?: none Exam - Constitutional Vitals: Temp Pulse Resp BP Pulse Ox 98.4 F 84 11 L 161/94 100 11/11/21 18:30 11/12/21 14:46 11/12/21 14:46 11/12/21 14:46 11/12/21 14:46 Plan Follow up with: DANE MILIAN MD [Primary Care Provider] - 3-5 Days
== END 2021-11-13 10:59 | disposition left against medical advice (07) | DRG 208 ==
LOC: ED 16:09 → CC1 21:09 → 4A 11-12 12:52
PROVIDERS: ADMIT Internal Medicine; ATTEND Internal Medicine
PROC: 5A1935Z Respiratory Ventilation, Less than 24 Consecutive Hours (ICD-10-PCS; principal; 2021-11-11)
PROC: 0BH17EZ Insertion of Endotracheal Airway into Trachea, Via Natural or Artificial Opening (ICD-10-PCS; 2021-11-11)
PROC: 4A033R1 Measurement of Arterial Saturation, Peripheral, Percutaneous Approach (ICD-10-PCS; 2021-11-11)
DX: J96.01 Acute respiratory failure with hypoxia (principal); J18.9 Pneumonia, unspecified organism; G93.40 Encephalopathy, unspecified; J44.1 Chronic obstructive pulmonary disease with (acute) exacerbation; E66.2 Morbid (severe) obesity with alveolar hypoventilation; J44.0 Chronic obstructive pulmonary disease with (acute) lower respiratory infection; J44.9 Chronic obstructive pulmonary disease, unspecified; J96.02 Acute respiratory failure with hypercapnia; D75.1 Secondary polycythemia; Z82.49 Family history of ischemic heart disease and other diseases of the circulatory system; Z68.38 Body mass index [BMI] 38.0-38.9, adult
CPT/HCPCS: 36415; 70450; 71045; 80053; 80307; 80320; 81001; 82140; 82550; 82803; 82962; 83735; 84443; 84484; 85007; 85025; 85610; 85730; 86850; 86900; 86901; 87040; 87086; 93005; 93010; 94002; 94644; G0378; J3490; G0480; J0696; J1644; J2704; J2930; J7040; J7120